=== PATIENT | male | born 1980 | race African-American/Black ===

== ENCOUNTER 2017-03-22 18:43 | Emergency (ER) | payer SELFPAY ==
[~2017-03-22] VITALS: Ht 177.8 cm; Wt 80.0 kg
[~2017-03-22 18:43] MED LIST: NAPROSYN500 MG OR; ULTRAM50 MG OR
[2017-03-22 19:52] LABS: HEMATOCRIT 48.5 % (39.0-50.0); HEMOGLOBIN 17.8 g/dl (14.0-18.0); IMMATURE GRANULOCYTES 0.4 % (0.0-1.0); MEAN CELL VOLUME 89.6 fL CALC (80.0-100.0); MEAN CORPUSCULAR HGB 32.9 pG CALC (26.0-32.0); MEAN CORPUSCULAR HGB CONC 36.7 g/L CALC (32.0-36.0); NEUT# 3.29 thou/uL (1.82-7.42); RED BLOOD COUNT 5.41 mill/uL (4.70-6.10); RED CELL DISTRI WIDTH 12.8 % (11.5-15.5)
[2017-03-22 20:14] LABS: ALKALINE PHOSPHATASE 94 u/l (38-126); ANION GAP 21 (6-22 (CALC)); BILIRUBIN, TOTAL 0.3 mg/dL (0.0-1.4); BUN 12 mg/dL (9-20); BUN/CREATININE RATIO 12 (12-20 (CALC)); CALCIUM 8.6 mg/dL (8.4-10.2); CARBON DIOXIDE 20 mmol/l (22-30); CHLORIDE 100 mmol/l (95-108); CREATININE 0.9 mg/dL (0.7-1.3); GFR > 60 ML/MIN (>=60 (CALC)); GFR FOR AFR.AMER. > 60 ML/MIN (>=60 (CALC)); GLUCOSE 88 mg/dL (75-110); POTASSIUM 4.1 mmol/l (3.5-5.1); SGOT/AST 37 u/l (17-59); SGPT/ALT 44 u/l (21-72); SODIUM 137 mmol/l (137-146); TOTAL PROTEIN 6.7 g/dL (6.3-8.2)
[2017-03-22 20:18] LABS: URINE BILIRUBIN - DIPSTICK NEGATIVE (NEGATIVE); URINE BLOOD DIPSTICK NEGATIVE (NEGATIVE); URINE CLARITY CLEAR; URINE COLOR YELLOW; URINE GLUCOSE - DIPSTICK NEGATIVE (NEGATIVE); URINE KETONE NEGATIVE (NEGATIVE); URINE LEUK ESTERASE NEGATIVE (NEGATIVE); URINE NITRITE - DIPSTICK NEGATIVE (Negative); URINE PH 5.5 (4.5-8.0); URINE PROTEIN - DIPSTICK NEGATIVE (NEG-TRACE); URINE SPECIFIC GRAVITY <=1.005; URINE UROBILINOGEN - DIPSTICK 0.2 E.U./dL (0.2)
[2017-03-22 20:21] LABS: ETHYL ALCOHOL 246 mg/dl (0-30)
[2017-03-22 20:23] LABS: BARBITURATES NEGATIVE (NEGATIVE); COCAINE NEGATIVE (NEGATIVE); METHADONE NEGATIVE (NEGATIVE); OXCYCODONE NEGATIVE (NEGATIVE); TETRAHYDROCANNABIONOL NEGATIVE (NEGATIVE); TRICYLIC ANTIDEPRESSANTS NEGATIVE (NEGATIVE)
[2017-03-23 15:37] VITALS: BP 118/79
== END 2017-03-23 15:37 | disposition short-term general hospital (02) | DRG 880 ==
LOC: ED 18:43
PROVIDERS: Emergency Medicine
DX: R45.851 Suicidal ideations (principal); F32.9 Major depressive disorder, single episode, unspecified; F10.10 Alcohol abuse, uncomplicated; F17.210 Nicotine dependence, cigarettes, uncomplicated; R36.9 Urethral discharge, unspecified; R21 Rash and other nonspecific skin eruption

== ENCOUNTER 2018-10-11 15:50 | Emergency (ER) | payer SELFPAY ==
[~2018-10-11] VITALS: Ht 177.8 cm; Wt 81.8 kg
[2018-10-11 16:29] LABS: HEMOGLOBIN 15.9 g/dl (14.0-18.0); IMMATURE GRANULOCYTES 0.5 % (0.0-5.0); MEAN CORPUSCULAR HGB 34.9 pG CALC (26.0-32.0); MEAN CORPUSCULAR HGB CONC 35.3 g/L CALC (32.0-36.0); NEUT# 8.99 thou/uL (1.82-7.42); RED BLOOD COUNT 4.55 mill/uL (4.70-6.10); RED CELL DISTRI WIDTH 12.5 % (11.5-15.5)
[2018-10-11 16:33] LABS: MEAN CELL VOLUME 98.9 fL CALC (80.0-100.0)
[2018-10-11 17:13] LABS: ALBUMIN 4.6 g/dL (3.2-5.0); ALKALINE PHOSPHATASE 84 u/l (38-126); AMYLASE 92 u/l (30-110); ANION GAP 20 (6-22 (CALC)); BILIRUBIN, TOTAL 0.8 mg/dL (0.0-1.4); BUN 7 mg/dL (9-20); BUN/CREATININE RATIO 9 (12-20 (CALC)); CARBON DIOXIDE 22 mmol/l (22-30); CHLORIDE 95 mmol/l (95-108); CREATININE 0.7 mg/dL (0.7-1.3); GFR > 60 ML/MIN (>=60 (CALC)); GFR FOR AFR.AMER. > 60 ML/MIN (>=60 (CALC)); LIPASE 267 u/l (23-300); POTASSIUM 4.5 mmol/l (3.5-5.1); SODIUM 133 mmol/l (137-146); TOTAL PROTEIN 7.4 g/dL (6.3-8.2)
[2018-10-11 17:18] LABS: SGOT/AST 90 u/l (17-59)
[2018-10-11 17:22] LABS: MYOGLOBIN 61 ng/mL (0 - 121)
[2018-10-11] MEDS ORDERED: ULTRAM50 M1 PO (18:09)
[2018-10-11] MEDS ORDERED: ZOFRAN ODT4 MG PO (18:09)
[2018-10-11] MEDS ORDERED: PREVACID30 M3 PO (18:09)
[2018-10-11 18:39] VITALS: BP 128/93
== END 2018-10-11 18:49 | disposition home or self-care (01) | DRG 440 ==
LOC: ED 15:50
PROVIDERS: Emergency Medicine
DX: K85.90 Acute pancreatitis without necrosis or infection, unspecified (principal); R10.12 Left upper quadrant pain; Z72.89 Other problems related to lifestyle; F17.290 Nicotine dependence, other tobacco product, uncomplicated
CPT/HCPCS: Q9967; S0164

== ENCOUNTER 2023-06-24 10:15 | Emergency (ER) | payer MEDICARE ==
[~2023-06-24] VITALS: Ht 177.8 cm; Wt 86.0 kg
[~2023-06-24 10:15] MED LIST changes: +PREVACID30 M3 PO; +ULTRAM50 M1 PO; +ZOFRAN ODT4 MG PO
[2023-06-24 10:20] VITALS: BP 125/88
[2023-06-24 10:30] VITALS: BP 120/81
[2023-06-24] MEDS ORDERED: CLINDAMYCIN300 M1 PO (10:40)
[2023-06-24] MEDS ORDERED: AMOX/K CLAV875 M1 PO (10:40)
[2023-06-24 10:46] VITALS: BP 123/85
== END 2023-06-24 11:03 | disposition home or self-care (01) ==
LOC: ED 10:15
PROC: 0C95XZZ Drainage of Upper Gingiva, External Approach (ICD-10-PCS; principal; 2023-06-24)
DX: K05.219 Aggressive periodontitis, localized, unspecified severity (principal); K03.81 Cracked tooth; F17.200 Nicotine dependence, unspecified, uncomplicated